=== PATIENT | male | born 1970 | race Caucasian/White ===

== ENCOUNTER → 2022-02-22 | Outpatient (CLI) | payer BC ==
--- NOTE | 2022-02-22 14:45 | KCIC ---
MR LUMBAR SPINE WO [id number] Date: 02/22/2022 10:57 AM Indication: Low back pain. Chronic LBP, some Lt hip pain. Pain worse the lsat week. Comparison: 10/19/2015. Technique: Multi-planar multi-weighted magnetic resonance imaging of the lumbar spine was performed w ithout intravenous contrast using the standard lumbar spine protocol. FINDINGS: Transitional anatomy at the lumbosacral junction. The transitional element is designated a lumbarized S1 vertebra with rudimentary disc at S1-2. Vertebral body numbering is done in concordance with the prior exam. The lumbar spine is normally aligned. No acute fracture. Mild multilevel degenerative disc desiccatio n and disc height loss. Nonspecific heterogeneously T1 hypointense marrow signal, which can be seen w ith smoking, anemia, or obesity. The conus terminates at a normal level. No abnormal signal is seen within the visualized distal spina l cord. No clumping of intrathecal nerve roots. No soft tissue abnormality in the visualized abdomen or pelvis. T12-L1: No disc bulge. No facet arthropathy. No significant spinal stenosis or neural foraminal narro wing. L1-L2: No disc bulge. No facet arthropathy. No significant spinal stenosis or neural foraminal narrow ing. L2-L3: Disc bulge. Mild facet arthropathy. No significant spinal stenosis or neural foraminal narrowi ng. L3-L4: Disc bulge. Moderate right and left facet arthropathy. No spinal stenosis. Mild right neural f oraminal narrowing. L4-L5: Disc bulge with annular tear. Mild facet arthropathy. Mild spinal stenosis and lateral recess narrowing. Moderate bilateral neural foraminal narrowing, progressed from the prior. L5-S1: Disc bulge with annular tear and a right paracentral protrusion, which has decreased in size s matthew the prior exam. Mild facet arthropathy. Mild spinal stenosis. Severe right and moderate left lat eral recess narrowing. Moderate bilateral neural foraminal narrowing, progressed. IMPRESSION: Lumbar spondylosis, detailed level by level above. Disc extrusion at L5-S1 has decreased in size sinc e the prior exam. Neural foraminal narrowing at L4-5 and L5-S1 has progressed. Electronically signed by: Jose Fuentes MD (02/22/2022 2:42 PM) [facility]
== END ==
LOC: KCIC MRI 10:40
PROVIDERS: ATTEND Family Medicine
DX: M47.816 Spondylosis without myelopathy or radiculopathy, lumbar region (principal); M51.27 Other intervertebral disc displacement, lumbosacral region; M48.07 Spinal stenosis, lumbosacral region; M51.37 Other intervertebral disc degeneration, lumbosacral region; M48.8X7 Other specified spondylopathies, lumbosacral region
CPT/HCPCS: 72148